=== PATIENT | male | born 1950 | race Caucasian/White ===

== ENCOUNTER 2022-10-27 08:18 | Outpatient (REF) | payer MEDICARE, SELFPAY ==
--- NOTE | ~2022-10-27 | XR_ITS ---
EXAMINATION: XR PELVIS CLINICAL INFORMATION: Hip pain COMPARISON: None available. TECHNIQUE: AP view of the pelvis. FINDINGS: There is severe arthritis of the right hip joint with joint space narrowing and osteophyte formation. There is moderate arthritis at the left hip joint. No fracture or dislocation. Bones of the pelvis are unremarkable. Sacroiliac joints are normal. Degenerative changes of visualized lower lumbar spine. Mild atherosclerotic disease. XR/XR pelvis 1-2V IMPRESSION: Bilateral hip arthritis, right greater than left.
== END 2022-10-27 08:19 | disposition home or self-care (01) ==
LOC: HO.HOSX 08:18
PROVIDERS: Visit Provider Orthopaedic Surgery
DX: M16.11 Unilateral primary osteoarthritis, right hip (principal)
CPT/HCPCS: 72170; 99202

== ENCOUNTER 2023-04-17 09:56 | Outpatient (AMB) | payer MEDICARE, SELFPAY ==
[2023-04-17 10:22] VITALS: BMI 33.0
--- NOTE | 2023-04-17 10:22 | MHC.OFFVIS ---
Intake Vital Signs 04/17/23 10:22 Height 5 ft 10 in Weight 230 lb BMI 33.0 Intake Visit Reasons: Preop RT YONIS 04/18/23 NE Intake Note: Joseph a 72 year old male presents today for a preoperative right YONIS, DOS 04/18/23. Pain management agreement reviewed and signed. Allergies No Known Allergies Allergy (Verified 04/17/23 10:23) HPI HPI Comments History of Present Illness Details Mr Feliciano presents to the office today for preop visit. He is scheduled for right total hip arthroplasty with Dr. Bhakta. He continues to have ongoing pain and difficulty with ambulation in the right hip, which is affecting his quality of life; therefore, he has elected to move forward with surgery. [facility] Medical History (Updated 04/17/23 @ 11:47 by Lamont Leon PA-C) History of skin cancer Osteoarthritis Habitual snoring COPD (chronic obstructive pulmonary disease) HTN (hypertension) Hyperlipidemia Carpal tunnel syndrome CHENG (dyspnea on exertion) Dysplastic nevus Abnormal EKG Back pain Hx of adenomatous polyp of colon Diverticulosis Memory change Spinal stenosis of lumbar region Lesion of [place] kidney Surgical History (Updated 04/17/23 @ 11:22 by Eli Cruz RN) History of back surgery History of total right knee replacement (TKR) H/O colonoscopy S/P TKR (total knee replacement) Social History Are you a primary career resource technician to a significant other at home: No Do you presently have visiting nurse or other home services: No Patient Tobacco Use Status: Former Tobacco user Review of Systems Const All systems reviewed & are unremarkable except as noted in HPI and below Physical Exam Vital Signs: BMI result Body Mass Index 33.0 Const General: cooperative, healthy appearing, comfortable, no acute distress, well developed and alert Orientation/consciousness: patient oriented x3 HEENT Head: Yes normal to inspection, Yes normocephalic and Yes atraumatic Eyes General: appearance normal, both eyes and all related structures Neck Neck: Yes normal visual inspection and Yes no lymphadenopathy Resp Effort & Inspection: normal respiratory effort and able to speak in complete sentences Cardio Rate: regular rate Peripheral pulses: Peripheral pulses 2+ throughout GI Inspection: Yes normal to inspection Palpation (GI): Soft to palpation Skin General skin exam: no rashes or lesions noted Neuro General: patient oriented x3 Extrem Other: Right hip: Normal to inspection. There is no open wounds, no abrasions. He has pain with ROM of hip and hip flexion. NVI. Psych Appearance: grossly normal Mental Status: mental status grossly normal Assessment & Plan Assessment & Plan (1) Osteoarthritis of right hip: Code(s): M16.11 - Unilateral primary osteoarthritis, right hip Qualifiers: Osteoarthritis type: primary Qualified Code(s): M16.11 - Unilateral primary osteoarthritis, right hip Plan: I discussed in detail the procedure and what to expect pre and post operatively. We discussed the risks, benefits and alternatives to the surgery as well as the rehabilitation course. The risks; which include, but are not limited to infection, bleeding, nerve injury, ongoing pain, swelling, and stiffness, perioperative risk of injury to bones and soft tissues, and blood clots. I?ve answered all questions and with their understanding they have consented to move forward with Right total hip arthroplasty with Dr. Bhakta Patient Instructions: Scribed for Lamont Leon PA-C, by Clive La medical management specialist, on 04/17/2023 at 10:15 AM Lamont OWENS PA-C, have personally reviewed and agree with the information entered by the scribe. Coding Level of Care Code Est Pt Level 3 (64299) Diagnoses Primary osteoarthritis of right hip M16.11 Osteoarthritis type: primary
== END 2023-04-17 10:44 | disposition home or self-care (01) ==
PROVIDERS: PCP Internal Medicine; Visit Provider Physician Assistant
DX: M16.11 Unilateral primary osteoarthritis, right hip (principal)
CPT/HCPCS: 99024

== ENCOUNTER → 2023-04-17 09:56 | Outpatient (BNVA) | payer MEDICARE, SELFPAY | PROVIDERS: PCP Internal Medicine; Visit Provider Physician Assistant | DX: M16.11 Unilateral primary osteoarthritis, right hip (principal) | CPT/HCPCS: 99212 ==

== ENCOUNTER 2023-04-18 06:05 | Inpatient (IN) | payer MEDICARE, SELFPAY ==
[2023-04-17 11:36] VITALS: BP 150/89; PULSE 68; RESP 18; O2SAT 98; BMI 32.9
--- NOTE | 2023-04-17 11:59 | HO.ANESPROP2 ---
Documented by User: Lisa Hedrick NP 04/17/23 12:09 HPI - Anesthesia Eval Consult details Narrative: 72yo M for Right Hip Total Replacement PCP cleared No recent illness No CP/SOB with exercise bike COPD. Albuterol occasional PMFSH Active Problems Active Problems: All Active Problems (Updated 04/17/23 @ 11:47 by Lamont Leon PA-C) Osteoarthritis of right hip (Acute) Past Medical History Medical History History of skin cancer Osteoarthritis Habitual snoring COPD (chronic obstructive pulmonary disease) HTN (hypertension) Hyperlipidemia Carpal tunnel syndrome CHENG (dyspnea on exertion) Dysplastic nevus Abnormal EKG Back pain Hx of adenomatous polyp of colon Diverticulosis Memory change Spinal stenosis of lumbar region Lesion of [place] kidney Family History Family history of problems with anesthesia: No Surgical History Surgical History History of back surgery History of total right knee replacement (TKR) H/O colonoscopy S/P TKR (total knee replacement) History of Problems with Anesthesia: No Social History Social History Are you a primary childcare center administrator to a significant other at home: No Do you presently have visiting nurse or other home services: No Patient Tobacco Use Status: Former Tobacco user Use of substances other than those prescribed or required for medical reasons: No Have you been hit, kicked, punched, or otherwise hurt by someone within the past year? If so, by whom?: No Advance Directives: No Advance Directives Information Provided: No Advance Directives on File: No Recently lost weight without trying: No Eating poorly because of decreased appetite: No Nutrition Risks: No Nutritional Risk Poor oral hygiene: No Meds Allergies Allergy/AdvReac Type Severity Reaction Status Date / Time No Known Allergies Allergy Verified 04/18/23 06:16 Home Medications Medication Instructions Recorded Confirmed Last Taken Type amlodipine 5 mg tablet 5 mg PO DAILY 10/27/22 04/17/23 04/18/23 History acetaminophen 325 mg tablet 650 mg PO QID PRN Pain 04/14/23 04/14/23 Unknown History albuterol sulfate 90 mcg/actuation 2 puff inhalation Q4H PRN wheezing 04/14/23 04/17/23 Unknown History aerosol inhaler atorvastatin 20 mg tablet 20 mg PO DAILY 04/14/23 04/14/23 Unknown History hydrochlorothiazide 25 mg tablet 25 mg PO DAILY 04/14/23 04/14/23 Unknown History metoprolol tartrate 25 mg tablet 25 mg PO BID 04/14/23 04/14/23 04/18/23 History multivitamin 1 tab PO DAILY 04/14/23 04/14/23 Unknown History omega 8-klx-vkw-fish oil 1,000 mg 1 cap PO DAILY 04/14/23 04/14/23 Unknown History (120 mg-180 mg) capsule (Fish Oil) vitamin E 400 unit tablet 45 mg PO DAILY 04/14/23 04/14/23 Unknown History aspirin 81 mg tablet,delayed 81 mg PO DAILY 04/17/23 04/17/23 04/18/23 History release Exam Exam Date and Time: April 17, 2023 1159 Height,Weight and Vital Signs: Height 5 ft 11 in Weight 107.048 kg Last Vital Signs Pulse 68 04/17/23 11:36 Resp 18 04/17/23 11:36 BP 150/89 H 04/17/23 11:36 Pulse Ox 98 04/17/23 11:36 O2 Del Method Room Air 04/17/23 11:36 Pertinent Lab Results Pertinent Lab Results: CBC and BMP from outside facility 03/22/23 WNL Narrative Narrative: EKG 03/27/[address] elevation Airway Mallampati Class: III TM Dist: >3cm Neck ROM: Full Loose/Missing/Broken Teeth: Yes (Molars missing) Heart: RRR Lungs: CTAB Assessment and Plan Assessment Anesthesia Assessment: Anesthesia Plan Discussed and PAT Visit Final Anesthetic Review Family History of Problems with Anesthesia: No History of Problems with Anesthesia: No Documented by User: Carmelo Coates MD 04/18/23 08:02 [facility] Past Medical History Medical History History of skin cancer Osteoarthritis Habitual snoring COPD (chronic obstructive pulmonary disease) HTN (hypertension) Hyperlipidemia Carpal tunnel syndrome CHENG (dyspnea on exertion) Dysplastic nevus Abnormal EKG Back pain Hx of adenomatous polyp of colon Diverticulosis Memory change Spinal stenosis of lumbar region Lesion of [place]q kidney Surgical History Surgical History History of back surgery History of total right knee replacement (TKR) H/O colonoscopy S/P TKR (total knee replacement) Social History Social History Are you a primary childcare center administrator to a significant other at home: No Do you presently have visiting nurse or other home services: No Patient Tobacco Use Status: Former Tobacco user Use of substances other than those prescribed or required for medical reasons: No Have you been hit, kicked, punched, or otherwise hurt by someone within the past year? If so, by whom?: No Advance Directives: No Advance Directives Information Provided: No Advance Directives on File: No Recently lost weight without trying: No Eating poorly because of decreased appetite: No Nutrition Risks: No Nutritional Risk Poor oral hygiene: No Meds Allergies Allergy/AdvReac Type Severity Reaction Status Date / Time No Known Allergies Allergy Verified 04/18/23 06:16 Home Medications Medication Instructions Recorded Confirmed Last Taken Type amlodipine 5 mg tablet 5 mg PO DAILY 10/27/22 04/17/23 04/18/23 History acetaminophen 325 mg tablet 650 mg PO QID PRN Pain 04/14/23 04/14/23 Unknown History albuterol sulfate 90 mcg/actuation 2 puff inhalation Q4H PRN wheezing 04/14/23 04/17/23 Unknown History aerosol inhaler atorvastatin 20 mg tablet 20 mg PO DAILY 04/14/23 04/14/23 Unknown History hydrochlorothiazide 25 mg tablet 25 mg PO DAILY 04/14/23 04/14/23 Unknown History metoprolol tartrate 25 mg tablet 25 mg PO BID 04/14/23 04/14/23 04/18/23 History multivitamin 1 tab PO DAILY 04/14/23 04/14/23 Unknown History omega 3-tce-pbf-fish oil 1,000 mg 1 cap PO DAILY 04/14/23 04/14/23 Unknown History (120 mg-180 mg) capsule (Fish Oil) vitamin E 400 unit tablet 45 mg PO DAILY 04/14/23 04/14/23 Unknown History aspirin 81 mg tablet,delayed 81 mg PO DAILY 04/17/23 04/17/23 04/18/23 History release Assessment and Plan Final Anesthetic Review ASA Class: II Final Preanesthetic Review: No Changes in Pt Med Stat, Meds/Allgs Chart Reviewed and Consent Obtained/Reviewed Patient Risk: Intermediate Procedure Risk: Intermediate Anesthetic Plan Anesthetic Plan: GA and Agree w/ Assess. and Plan Disposition: Standard PACU
[2023-04-17 13:33] LABS: MRSA Nasal PCR NEGATIVE (Negative); SA Nasal PCR NEGATIVE (Negative)
[2023-04-18] VITALS (12 sets, daily range): BP systolic 94–154; BP diastolic 61–99; PULSE 56–88; RESP 16–20; TEMP 36.1–37.1; O2SAT 93–98
--- NOTE | ~2023-04-18 | XR_ITS ---
EXAMINATION: XR PELVIS CLINICAL INFORMATION: Total hip arthroplasty evaluation COMPARISON: Pelvic x-ray on 10/27/2022 TECHNIQUE: AP view of the pelvis. FINDINGS: BONES: Bony structures are intact. Advanced lower degenerative lumbar disc disease and lateral syndesmophytes are seen. There is no focal bone destruction or periosteal reaction seen. JOINTS: There is normal alignment of the right total hip arthroplasty prostheses. SOFT TISSUE: Soft tissue is normal. No abnormal air collection is seen. XR/XR pelvis 1-2V IMPRESSION: 1. Unchanged normal pelvis x-ray. No fracture or dislocation is seen. 2. Interval successful right total hip arthroplasty with normal alignment of right total hip arthroplasty prostheses. No fracture or dislocation or signs of loosening are seen.
[2023-04-18] MEDS: Lactated Ringers 1,000 ML 100 ML IVCONT ×3 (06:31→21:04)
--- NOTE | 2023-04-18 07:12 | PHA.MEDREC ---
Pharmacy Consult ? Medication Reconciliation Pharmacy has completed the medication reconciliation. Reviewed med rec done by nursing
[2023-04-18] MEDS: ceFAZolin Sodium/Dextrose,Iso 2 GM/50 ML PIGGYBACK IV ×2 (07:26→12:55)
--- NOTE | 2023-04-18 07:40 | MHC.SHP ---
Pre-Procedural Eval Section A Date of Service: 04/18/23 The patient is an INPATIENT: No Changes since office visit: No Cold of Flu in the past 2 weeks, No New Medical Problems, No Changes in Medication and No Patient answered all questions The History & Physical has been completed within 30 days and I have reviewed it.: Yes Section B Chief Complaint: RT YONIS Allergies: Allergies Allergy/AdvReac Type Severity Reaction Status Date / Time No Known Allergies Allergy Verified 04/18/23 06:16 Plan I have reviewed the history and physical and performed a pertinent physical examination on my patient. No changes have occurred unless specified. Time Spent With Patient Time: Total time managing care of this patient today ____ minutes.
--- NOTE | 2023-04-18 09:44 | PM.OP ---
Brief Operative Note Date of Service: 04/18/23 Pre-op diagnosis: right hip OA Post-op diagnosis: same Procedure: Right YONIS Implants: Sahil Trident2 60 Abell Accoalde2 #10 132 deg with +0/36 CoCr Surgeon: Michael Bhakta MD Anesthesia: GETA Was an Investment Professional used for this Procedure?: No Estimated blood loss (mL): 250 IV fluids (mL): 1,000 Pathology: other Condition: stable Disposition: PACU
--- NOTE | 2023-04-18 11:16 | PM.IMCN ---
History of Present Illness Data of Consult Service Date: 04/18/23 Primary Care Provider: Jr Del Cid MD HPI Reason for consult: Medical management A 73 years old male with PMH of HTN, HLD among others who presents to the hospital for elective right hip arthroplasty. No chest pain, palpitations, SOB, nausea, vomiting, diarrhea or urinary symptoms. Hospitalist team asked to follow for medical management. Review of Systems Review of Systems: No fever, chills or weakness No chest pain, palpitation No shortness of breath or coughing No abdominal pain, nausea or vomiting No urinary symptoms No any rash or wounds [facility] Medical History (Updated 04/18/23 @ 11:19 by Jeffrey Carbajal MD) History of skin cancer Osteoarthritis Habitual snoring COPD (chronic obstructive pulmonary disease) HTN (hypertension) Hyperlipidemia Carpal tunnel syndrome CHENG (dyspnea on exertion) Dysplastic nevus Abnormal EKG Back pain Hx of adenomatous polyp of colon Diverticulosis Memory change Spinal stenosis of lumbar region Lesion of [place] kidney Surgical History History of back surgery History of total right knee replacement (TKR) H/O colonoscopy S/P TKR (total knee replacement) Social History Household Members: Spouse Housing: Condominium Are you a primary skin care technician to a significant other at home: No Do you presently have visiting nurse or other home services: No Patient Tobacco Use Status: Former Tobacco user Use of substances other than those prescribed or required for medical reasons: No Have you been hit, kicked, punched, or otherwise hurt by someone within the past year? If so, by whom?: No Do you feel safe in your current relationship?: Yes Is there a partner from a previous relationship who is making you feel unsafe now?: No Are you made to feel afraid or neglected: No Advance Directives: No Advance Directives Information Provided: No Advance Directives on File: No Do you have thoughts of harming others: None Do you have a plan to hurt others: No Plan Recently lost weight without trying: No How much weight loss: Not applicable Eating poorly because of decreased appetite: No Nutrition screen score: 0 Nutrition Risks: No Nutritional Risk Poor oral hygiene: No Meds Allergies Allergy/AdvReac Type Severity Reaction Status Date / Time No Known Allergies Allergy Verified 04/18/23 06:16 Active Medications: Current Medications Acetaminophen (Acetaminophen 325 Mg Tablet) 650 mg PO Q6H PRN PRN Reason: Pain, Mild (Pain Scale 1-3) Albuterol Sulfate (Albuterol Sulfate 90 Mcg 8 Gm Inhaler) 2 puff INHALE Q4H PRN PRN Reason: wheezing Aspirin (Aspirin 325 Mg Tablet) 325 mg PO BID [facility] Celecoxib (Celecoxib 200 Mg Capsule) 200 mg PO BID [facility] Docusate Sodium (Docusate Sodium 100 Mg Capsule) 100 mg PO BID [facility] Hydromorphone HCl (Hydromorphone Hcl 0.5 Mg/0.5 Ml Syringe) 0.25 mg IVPUSH Q4H PRN; Protocol PRN Reason: Pain, Severe (Pain Scale 7-10) Lactated Ringer's (Lr) 1,000 mls @ 100 mls/hr IVCONT .Q10H [facility] Stop: 04/19/23 09:50 Last Admin: 04/18/23 10:53 Dose: 100 mls/hr Cefazolin Sodium/Dextrose (Ancef) 2 gm in 50 mls @ 100 mls/hr IV POSTOP ONE Stop: 04/18/23 13:29 Metoprolol Tartrate (Metoprolol Tartrate 25 Mg Tablet) 25 mg PO BID [facility]; Protocol Ondansetron HCl (Ondansetron Hcl 4 Mg/2 Ml Vial) 4 mg IVPUSH Q8H PRN PRN Reason: Nausea and Vomiting Oxycodone HCl (Oxycodone Hcl Immed Release 5 Mg Tablet) 5 mg PO Q4H PRN PRN Reason: Pain, Moderate(Pain Scale 4-6) Oxycodone HCl (Oxycodone Hcl Er 10 Mg Tab.Er.12h) 10 mg PO BID [facility] Sodium Chloride (0.9 % Sodium Chloride Flush 3 Ml Syringe) 3 ml IVFLUSH QSHIFT [facility] Home Medications Medication Instructions Recorded Confirmed Last Taken Type amlodipine 5 mg tablet 5 mg PO DAILY 10/27/22 04/17/23 04/18/23 History acetaminophen 325 mg tablet 650 mg PO QID PRN Pain 04/14/23 04/14/23 Unknown History albuterol sulfate 90 mcg/actuation 2 puff inhalation Q4H PRN wheezing 04/14/23 04/17/23 Unknown History aerosol inhaler atorvastatin 20 mg tablet 20 mg PO DAILY 04/14/23 04/14/23 Unknown History hydrochlorothiazide 25 mg tablet 25 mg PO DAILY 04/14/23 04/14/23 Unknown History metoprolol tartrate 25 mg tablet 25 mg PO BID 04/14/23 04/14/23 04/18/23 History multivitamin 1 tab PO DAILY 04/14/23 04/14/23 Unknown History omega 9-zit-qub-fish oil 1,000 mg 1 cap PO DAILY 04/14/23 04/14/23 Unknown History (120 mg-180 mg) capsule (Fish Oil) vitamin E 400 unit tablet 45 mg PO DAILY 04/14/23 04/14/23 Unknown History aspirin 81 mg tablet,delayed 81 mg PO DAILY 04/17/23 04/17/23 04/18/23 History release Physical Exam Vital Signs and Narrative: Vital Signs: Last Vital Signs Temp 97.6 F 04/18/23 11:07 Pulse 72 04/18/23 11:07 Resp 20 04/18/23 11:07 BP 154/79 H 04/18/23 11:07 Pulse Ox 98 04/18/23 11:07 O2 Del Method Nasal Cannula 04/18/23 11:07 O2 Flow Rate 2 04/18/23 11:07 BMI result Body Mass Index 32.9 Const: Other: Constitutional : Awake, interactive, not in distress Neck : Normal inspection, Supple Cardiovascular : RRR, no JVP, no lower extremity edema Respiratory : good bilateral air entry, no wheezes or rhonchi Gastrointestinal: soft, lax, Normal bowel sounds, Non tender Skin : Warm, Dry Skeletal: Right hip wound covered with dressing Neurological : Alert & oriented x3, No focal deficit Results Labs Labs: Laboratory Results - last 24 hr 04/17/23 04/17/23 11:48 12:45 Nasal Screen MRSA (PCR) NEGATIVE Nasal S. aureus Screen NEGATIVE Nasal MRSA/S.aureus Interp SEE NOTE Blood Type O Positive Antibody Screen NEGATIVE Assessment and Plan (1) HTN (hypertension): Status: Acute Plan A 73 years old male with PMH of HTN, HLD among others who presents to the hospital for elective right hip arthroplasty. Right hip arthroplasty POD 0 Ortho team following HTN home meds HLD Statin Thank you for the consult. will follow with you as needed. plz contact hospitalist team for any further questions
--- NOTE | 2023-04-18 13:55 | PC.NURSE ---
Patient DTV by 1200 but unable to urinate more than 15ml, but bladder scanned for 300ml surgical PA Dang Campos aware and ordered to straight cath. Elvis cathed at 1345 for 350ml
[2023-04-18] MEDS: oxyCODONE HCl Immed Release 5 MG TABLET PO ×2 (17:44→22:42)
[2023-04-18] MEDS: Acetaminophen 325 MG TABLET 650 MG PO (20:07)
[2023-04-18] MEDS: Docusate Sodium 100 MG CAPSULE PO (20:07)
[2023-04-18] MEDS: Celecoxib 200 MG CAPSULE PO (20:07)
[2023-04-18] MEDS: oxyCODONE HCl ER 10 MG TAB.ER.12H PO (20:07)
[2023-04-18] MEDS: Metoprolol Tartrate 25 MG TABLET PO (20:16)
[2023-04-18] MEDS: 0.9 % Sodium Chloride Flush 3 ML SYRINGE IVFLUSH (20:17)
[2023-04-18] MEDS: Melatonin 3 MG TABLET 6 MG PO (21:03)
[2023-04-19] MEDS: oxyCODONE HCl Immed Release 5 MG TABLET PO ×3 (02:46→14:50)
[2023-04-19] MEDS: Acetaminophen 325 MG TABLET 650 MG PO ×3 (02:47→19:58)
[2023-04-19 02:56] VITALS: BP 121/78; PULSE 74; RESP 18; TEMP 36.5; O2SAT 98
[2023-04-19 06:38] LABS: Basophils Absolute Auto 0.1 X10*3/uL (0.0-0.2); Basophils Percent Auto 0.4 % (0-2); Eosinophils Absolute Auto 0.1 X10*3/uL (0.0-0.4); Eosinophils Percent Auto 0.4 % (0-4); Hematocrit 38.3 % (42.0-52.0); Hemoglobin 12.8 g/dl (14.0-18.0); Imm Gran Abs Auto 0.08 X10*3/uL (0.00-0.03); Imm Gran Pct Auto 0.5 % (0.0-0.4); Lymphocytes Absolute Auto 1.4 X10*3/uL (1.2-4.9); Lymphocytes Percent Auto 8.5 % (20-40); MANUAL DIFF FLAG SCAN; Mean Corpuscular HGB Conc 33.4 g/dl (31.0-36.0); Mean Corpuscular Volume 86.8 fL (80.0-98.0); Mean Platelet Volume 12.2 fL (9.4-12.4); Monocytes Absolute Auto 2.3 X10*3/uL (0.1-1.2); Monocytes Percent Auto 14.3 % (2-11); Neutrophils Absolute Auto 12.4 x10*3/uL (2.0-8.3); Neutrophils Percent Auto 75.9 % (45-73); PLT CLUMP 1; Red Blood Count 4.41 X10*6/uL (4.60-5.80); Red Cell Distribution Width 12.9 % (11.0-16.0); SCAN SMEAR FLAG 1
[2023-04-19 06:54] LABS: Anion Gap 14 (12-20); Blood Urea Nitrogen 22 mg/dL (9-16); Calcium 8.7 mg/dL (8.4-10.2); Carbon Dioxide 25 mmol/L (22-29); Chloride 104 mmol/L (96-108); Creatinine Clr Calc Pharmacy 68.3; Estimated Glomerular Filt Rate > 60; Glucose Fasting 121 mg/dL (60-99); Potassium 3.6 mmol/L (3.3-5.1); Sodium 139 mmol/L (135-145)
--- NOTE | 2023-04-19 07:35 | PM.PNORT ---
Subjective Subjective Date of Service: 04/19/23 Interval history: POD1 s/p RTHA Patient is resting in bed comfortably No overnight events Pain is managed No additional complaints Physical Exam Vital Signs: Vital Signs: Last Vital Signs Temp 97.7 F 04/19/23 02:56 Pulse 74 04/19/23 02:56 Resp 18 04/19/23 02:56 BP 121/78 04/19/23 02:56 Pulse Ox 98 04/19/23 02:56 O2 Del Method Room Air 04/19/23 02:56 O2 Flow Rate 2 04/18/23 11:07 BMI result Body Mass Index 32.9 Const: General: cooperative, healthy appearing and no acute distress Resp: Effort & Inspection: normal respiratory effort and able to speak in complete sentences Cardio: Rate: regular rate Peripheral pulses: Peripheral pulses 2+ throughout GI: Palpation (GI): Soft to palpation Skin: Lesions: no lesions Rashes: no rashes Extrem: Other: right hip dressing is c/d/i. Able to dorsi/plantar flex. Calf is supple and nontender. Sensation intact. Pedal pulse intact. Procedures Date of Service Date of Service: 04/19/23 Progress Note: A&P Assessment and plan (1) Status post total replacement of right hip: Status: Acute Assessment and Plan: Continue pain mgmnt Begin ASA for dvt ppx begin PT for RTHA - WBAT, posterior precautions Dispo planning-Pending PT eval, pain mgmnt Time Spent With Patient Time: Total time managing care of this patient today ____ minutes. Quality Stroke Does the patient have a stroke diagnosis?: No VTE Prior VTE?: No VTE Risk Level:: Medical - moderate - high VTE Device Contraindication: N/A - Device Ordered VTE Drug Contraindication: N/A - Med Ordered
[2023-04-19 07:44] VITALS: BP 99/60; PULSE 56; RESP 16; TEMP 36; O2SAT 97
[2023-04-19] MEDS: oxyCODONE HCl ER 10 MG TAB.ER.12H PO ×2 (08:03→19:59)
[2023-04-19] MEDS: Celecoxib 200 MG CAPSULE PO ×2 (08:04→19:58)
[2023-04-19] MEDS: Aspirin 325 MG TABLET PO ×2 (08:04→19:59)
[2023-04-19] MEDS: Docusate Sodium 100 MG CAPSULE PO ×2 (08:04→19:59)
[2023-04-19 08:29] LABS: Platelet Count 163 X10*3/uL (160-400); SLIDE REVIEW VERIFIED; White Blood Count 16.3 X10*3/uL (4.8-10.8)
[2023-04-19 09:02] VITALS: BP 99/60; PULSE 56; O2SAT 97
--- NOTE | 2023-04-19 09:25 | MHC.CM.PN ---
CM ATTEMPTED TO MEET WITH PT HOWEVER PT WORKING W/P.T., CM TO REVISIT.
[2023-04-19] MEDS: polyethylene glycoL 3350 17 GM POWD.PACK PO (09:48)
[2023-04-19] MEDS: HYDROmorphone HCl 0.5 MG/0.5 ML SYRINGE IVPUSH (09:49)
--- NOTE | 2023-04-19 09:56 | P.PNIM_ITS ---
Subjective Subjective Date of Service: 04/19/23 Interval History: Complaining of rt. hip pain worse with transfers, feels current pain medications not helping with pain, denies lightheadedness or dizziness, no nausea, no vomiting no abdominal pain, no urinary symptoms, no other acute issues. Noted to have soft blood pressures this morning. Review of Systems All other system reviewed and negative Physical Exam 2 Vital Signs: Vital Signs: Last Vital Signs Temp 96.8 F 04/19/23 07:44 Pulse 56 04/19/23 09:02 Resp 16 04/19/23 07:44 BP 99/60 04/19/23 09:02 Pulse Ox 97 04/19/23 09:02 O2 Del Method Room Air 04/19/23 07:44 O2 Flow Rate 2 04/18/23 11:07 BMI result Body Mass Index 32.9 Const: Other: Constitutional : Awake, alert, not in distress Neck : Normal inspection, no JVD Cardiovascular : RRR, Respiratory : Clear to auscultation, no wheezes or rhonchi Gastrointestinal: soft, Normal bowel sounds, Non tender Skin : Warm, Dry Skeletal: Right hip wound covered with dressing. Neurological : Alert & oriented x3, No focal deficit Objective Data Active Medications Acetaminophen (Acetaminophen 325 Mg Tablet) 650 mg PO TID [facility] Albuterol Sulfate (Albuterol Sulfate 90 Mcg 8 Gm Inhaler) 2 puff INHALE Q4H PRN PRN Reason: wheezing Amlodipine Besylate (Amlodipine Besylate 5 Mg Tablet) 5 mg PO DAILY [facility]; Protocol Aspirin (Aspirin 325 Mg Tablet) 325 mg PO BID [facility] Last Admin: 04/19/23 08:04 Dose: 325 mg Documented By: PEEWEE Celecoxib (Celecoxib 200 Mg Capsule) 200 mg PO BID [facility] Last Admin: 04/19/23 08:04 Dose: 200 mg Documented By: PEEWEE Docusate Sodium (Docusate Sodium 100 Mg Capsule) 100 mg PO BID [facility] Last Admin: 04/19/23 08:04 Dose: 100 mg Documented By: PEEWEE Hydromorphone HCl (Hydromorphone Hcl 0.5 Mg/0.5 Ml Syringe) 0.5 mg IVPUSH Q4H PRN; Protocol PRN Reason: Pain, Severe (Pain Scale 7-10) Last Admin: 04/19/23 09:49 Dose: 0.5 mg Documented By: PEEWEE Melatonin (Melatonin 3 Mg Tablet) 6 mg PO BEDTIME PRN PRN Reason: Insomnia Last Admin: 04/18/23 21:03 Dose: 6 mg Documented By: VIRI Metoprolol Tartrate (Metoprolol Tartrate 25 Mg Tablet) 25 mg PO BID [facility]; Protocol Last Admin: 04/19/23 08:04 Dose: Not Given Documented By: PEEWEE Non-Admin Reason: Low BP Ondansetron HCl (Ondansetron Hcl 4 Mg/2 Ml Vial) 4 mg IVPUSH Q8H PRN PRN Reason: Nausea and Vomiting Oxycodone HCl (Oxycodone Hcl Immed Release 5 Mg Tablet) 5 mg PO Q4H PRN PRN Reason: Pain, Moderate(Pain Scale 4-6) Last Admin: 04/19/23 07:14 Dose: 5 mg Documented By: PEEWEE Oxycodone HCl (Oxycodone Hcl Er 10 Mg Tab.Er.12h) 10 mg PO BID [facility] Last Admin: 04/19/23 08:03 Dose: 10 mg Documented By: PEEWEE Polyethylene Glycol (Polyethylene Glycol 3350 17 Gm Powd.Pack) 17 gm PO DAILY [facility] Last Admin: 04/19/23 09:48 Dose: 17 gm Documented By: PEEWEE Sodium Chloride (0.9 % Sodium Chloride Flush 3 Ml Syringe) 3 ml IVFLUSH QSHIFT [facility] Last Admin: 04/19/23 07:17 Dose: Not Given Documented By: PEEWEE Non-Admin Reason: ivf running Labs 04/19/23 06:16 04/19/23 06:16 Labs: Laboratory Results - last 24 hr 04/19/23 06:16 MCV 86.8 MCH 29.0 MCHC 33.4 RDW 12.9 Plt Count 163 MPV 12.2 Immature Gran % (Auto) 0.5 H Neut % (Auto) 75.9 H Lymph % (Auto) 8.5 L [place] % (Auto) 14.3 H Eos % (Auto) 0.4 Baso % (Auto) 0.4 Lymph # (Auto) 1.4 [place] # (Auto) 2.3 H Eos # (Auto) 0.1 Baso # (Auto) 0.1 Abs Immat Gran (auto) 0.08 H Absolute Neuts (auto) 12.4 H Absolute Nucleated RBC 0.000 Nucleated RBC % (auto) 0.0 Smear Tech's Comments VERIFIED Anion Gap 14 Estim Creat Clear Calc 68.3 Estimated GFR > 60 Fasting Glucose 121 H Calcium 8.7 Assessment and Plan (1) HTN (hypertension): Status: Acute (2) Status post total replacement of right hip: Status: Acute (3) Osteoarthritis of right hip: Status: Acute Plan 73 years old male with PMH of HTN, HLD among others who presents to the hospital for elective right hip arthroplasty. Right hip arthroplasty POD 1, persistent right hip pain Will increase dose of Dilaudid to 0.5 mg add scheduled Tylenol continue OxyContin and as needed oxycodone DC IV fluids, add MiraLax continue Colace encourage Incentive spirometry Ortho team following HTN Soft blood pressure patient asymptomatic will continue beta-blockers and hold Norvasc follow BP closely HLD Statin DVT prophylaxis on aspirin 325 mg b.i.d. as per Ortho. Quality Stroke Does the patient have a stroke diagnosis?: No VTE Prior VTE?: No VTE Risk Level:: Medical - moderate - high VTE Device Contraindication: N/A - Device Ordered VTE Drug Contraindication: N/A - Med Ordered
--- NOTE | 2023-04-19 10:46 | HO.POSTANES ---
Post Anesthesia Evaluation Post Anesthesia Evaluation Date of Service: 04/19/23 Vital Signs: Vital Signs Temp Pulse Resp BP Pulse Ox O2 Del Method 04/19/23 09:02 56 99/60 97 04/19/23 07:44 96.8 F 56 16 99/60 97 Room Air 04/19/23 02:56 97.7 F 74 18 121/78 98 Room Air Anesthesia: General Mental Status: Awake Pain Control: Satisfactory Nausea/Vomiting: None Hydration: Adequate Anesthesia-Related Issues: No Anes. Related Issues
--- NOTE | 2023-04-19 11:40 | MHC.CM.PN ---
IMM 04/19/23, EMR REVIEWED, PT REPORTS HE LIVES W/HIS , IS INDEP W/ALL CARE, HAS A CANE/WALKER/TOILET RISER/SHOWER BENCH FOR DME ADN NO HOME SERVICES, PT REPORTS HE ONLY USES THE CAN WHEN HE IS OUT AND ABOUT , PT REPORTS GOAL FOR DC IS HOME W/SERVICES AND NO PREFERENCE OF VNA AND AGREEABLE TO [facility], REFERRAL PLACED. PT VERIFIES PCP IS JONATHAN RIZVI, SUZETTE VACC X2 AMD HCP OS CELESTINA AND ALTERNATE IS DTR POLINA CASTILLO, COPY REQUESTED. ANTIC DC THURS 04/20 HOME W/NEW [facility] FOR HOME PT, FAMILY FOR TRANSPORT
[2023-04-19 13:38] VITALS: BP 99/60; PULSE 56; O2SAT 97
[2023-04-19 15:40] VITALS: BP 104/61; PULSE 63; RESP 18; TEMP 36.1; O2SAT 98
[2023-04-19] MEDS: oxyCODONE HCl Immed Release 5 MG TABLET 10 MG PO ×2 (15:57→19:59)
[2023-04-19 19:36] VITALS: BP 105/66; PULSE 80; RESP 18; TEMP 36.4; O2SAT 93
[2023-04-19] MEDS: Metoprolol Tartrate 25 MG TABLET PO (19:59)
[2023-04-20] MEDS: 0.9 % Sodium Chloride Flush 3 ML SYRINGE IVFLUSH ×2 (00:03→07:34)
[2023-04-20] MEDS: HYDROmorphone HCl 0.5 MG/0.5 ML SYRINGE IVPUSH (00:12)
[2023-04-20 04:00] VITALS: BP 105/60; PULSE 57; RESP 16; TEMP 36.3; O2SAT 96
[2023-04-20 06:19] LABS: Basophils Absolute Auto 0.1 X10*3/uL (0.0-0.2); Basophils Percent Auto 0.8 % (0-2); Eosinophils Absolute Auto 0.2 X10*3/uL (0.0-0.4); Eosinophils Percent Auto 1.8 % (0-4); Hematocrit 35.6 % (42.0-52.0); Hemoglobin 11.8 g/dl (14.0-18.0); Imm Gran Abs Auto 0.07 X10*3/uL (0.00-0.03); Imm Gran Pct Auto 0.6 % (0.0-0.4); Lymphocytes Absolute Auto 1.3 X10*3/uL (1.2-4.9); Lymphocytes Percent Auto 10.4 % (20-40); MANUAL DIFF FLAG SCAN; Mean Corpuscular HGB Conc 33.1 g/dl (31.0-36.0); Mean Corpuscular Hemoglobin 29.2 pg (27.0-33.0); Mean Corpuscular Volume 88.1 fL (80.0-98.0); Mean Platelet Volume 11.2 fL (9.4-12.4); Monocytes Absolute Auto 1.6 X10*3/uL (0.1-1.2); Neutrophils Absolute Auto 9.2 x10*3/uL (2.0-8.3); Neutrophils Percent Auto 73.4 % (45-73); Platelet Count 159 X10*3/uL (160-400); Red Blood Count 4.04 X10*6/uL (4.60-5.80); SCAN SMEAR FLAG 1; White Blood Count 12.6 X10*3/uL (4.8-10.8)
[2023-04-20 06:20] LABS: Anion Gap 12 (12-20); Blood Urea Nitrogen 22 mg/dL (9-16); Carbon Dioxide 28 mmol/L (22-29); Chloride 103 mmol/L (96-108); Creatinine Clr Calc Pharmacy 72.6; Estimated Glomerular Filt Rate > 60; Glucose Fasting 109 mg/dL (60-99); Potassium 4.3 mmol/L (3.3-5.1); Sodium 139 mmol/L (135-145)
--- NOTE | 2023-04-20 06:24 | P.DS_ITS ---
DS: Providers Provider Date of Service: 04/20/23 <Lamont Leon PA-C - Last Filed: 04/20/23 06:25> Date of admission: 04/18/23 06:05 <LANDON Emerson Last Filed: 04/20/23 06:25> Primary care physician: Jr Del Cid MD <LANDON Emerson Last Filed: 04/20/23 06:25> Consults: 04/18/23 10:29 Consult to Hospitalist Routine Comment: Consulting Provider: Hospitalist Reason For Exam: medical management <LANDON Emerson Last Filed: 04/20/23 06:25> DS: Diagnosis Discharge Diagnosis (1) Status post total replacement of right hip: Status: Acute <LANDON Emerson Last Filed: 04/20/23 06:25> DS: Summary Hospital Course Hospital Course: The patient underwent a successful Right total hip arthroplasty on 04/18/23 , was transferred to PACU and then to the floor to recover. During their stay, their vitals were stable, afebrile at 97.4. Labs were unremarkable, H/H 11.8/35.6. POD 1 he was started on Aspirin 325mg tabs twice a day for DVT ppx, they also received Physical Therapy services twice a day. Physical therapy should include gait training, core and lumbar strength, glute strength. Posterior precautions intact. WBAT. Prior to discharge, her dressing was changed, incision clean dry and intact, new Aquacel dressing applied. The Aquacel dressing should remain intact and dry at all times. Any concerns with the dressing, please contact orthopedic office. No showering. The plan is to be discharged home with [facility]NA services <LANDON Emerson Last Filed: 04/20/23 06:25> Time Attestation Discharge coordination time: Less than 30 minutes <LANDON Coley Last Filed: 04/20/23 08:56> Quality: Safe Use of Opioids Does Pt have an Active Cancer Diagnosis on the Problem List?: No <LANDON Coley Last Filed: 04/20/23 08:56> Quality: Stroke Does the patient have a stroke diagnosis?: No <Dang Adams PA-C - Last Filed: 04/20/23 08:56> Physical Exam Vital Signs: Vital Signs: Last Vital Signs Temp 97.3 F 04/20/23 04:00 Pulse 57 04/20/23 04:00 Resp 16 04/20/23 04:00 BP 105/60 04/20/23 04:00 Pulse Ox 96 04/20/23 04:00 O2 Del Method Room Air 04/20/23 04:00 O2 Flow Rate 2 04/18/23 11:07 BMI result Body Mass Index 32.9 <Lamont Leon PA-C - Last Filed: 04/20/23 06:25> DS: Data Data Completed and Pending Pending studies at discharge: Pending at discharge 04/18/23 09:17 Surgical [PTH] Routine <Lamont Leon PA-C - Last Filed: 04/20/23 06:25> Labs on day of discharge: Laboratory Results - last 24 hr 04/19/23 04/20/23 06:16 05:28 WBC 16.3 H RBC 4.41 L Hgb 12.8 L Hct 38.3 L MCV 86.8 MCH 29.0 MCHC 33.4 RDW 12.9 Plt Count 163 MPV 12.2 Immature Gran % (Auto) 0.5 H Neut % (Auto) 75.9 H Lymph % (Auto) 8.5 L [place] % (Auto) 14.3 H Eos % (Auto) 0.4 Baso % (Auto) 0.4 Lymph # (Auto) 1.4 [place] # (Auto) 2.3 H Eos # (Auto) 0.1 Baso # (Auto) 0.1 Abs Immat Gran (auto) 0.08 H Absolute Neuts (auto) 12.4 H Absolute Nucleated RBC 0.000 Nucleated RBC % (auto) 0.0 Smear Tech's Comments VERIFIED Sodium 139 139 Potassium 3.6 4.3 Chloride 104 103 Carbon Dioxide 25 28 Anion Gap 14 12 BUN 22 H 22 H Creatinine 1.18 1.11 Estim Creat Clear Calc 68.3 72.6 Estimated GFR > 60 > 60 Fasting Glucose 121 H 109 H Calcium 8.7 9.0 <Lamont Leon PA-C - Last Filed: 04/20/23 06:25> Discharge Plan Discharge Anticipated Discharge Date/Time: 04/20/23 12:00 <Lamont Leon PA-C - Last Filed: 04/20/23 06:25> Patient Disposition: Home Health Service <Lamont Leon PA-C - Last Filed: 04/20/23 06:25> Discharge Diagnosis: S/P RT YONIS <Lamont Leon PA-C - Last Filed: 04/20/23 06:25> S/P RT YONIS <Dang Adams PA-C - Last Filed: 04/20/23 08:56> Referrals: Lamont Leon PA-C [Physician Sticker On] - 2 Weeks (05/08/23 12:45 [facility] Orthopedic Surgeons Lamont Leon PA-C) <Lamont Leon PA-C - Last Filed: 04/20/23 06:25> Discharge Medications: New docusate sodium 100 mg Capsule 100 mg PO BID 14 Days Qty: 28 0RF celecoxib 200 mg Capsule 200 mg PO BID 30 Days Qty: 60 3RF aspirin 325 mg Tablet 325 mg PO BID 42 Days Qty: 84 0RF oxycodone 5 mg Tablet 5 mg PO Q4H PRN (Reason: Pain, Moderate(Pain Scale 4-6)) 7 Days Qty: 42 0RF Rx Instructions: Partial Fill upon patient request. acetaminophen 325 mg Tablet 650 mg PO TID 30 Days Qty: 180 3RF Continued multivitamin Tablet 1 tab PO DAILY atorvastatin 20 mg tablet 20 mg PO DAILY vitamin E 400 unit Tablet 45 mg PO DAILY hydrochlorothiazide 25 mg tablet 25 mg PO DAILY albuterol sulfate 90 mcg/actuation HFA aerosol inhaler 2 puff INHALATION Q4H PRN (Reason: wheezing) metoprolol tartrate 25 mg tablet 25 mg PO BID amlodipine 5 mg tablet 5 mg PO DAILY Held omega 2-pos-lpg-fish oil [Fish Oil] 1,000 mg (120 mg-180 mg) Capsule 1 cap PO DAILY Hold Instructions: Resume on 06/02/23. aspirin 81 mg Tablet,Delayed Release (Dr/Ec) 81 mg PO DAILY Hold Instructions: Resume on 06/02/23. Discontinued acetaminophen 325 mg Tablet 650 mg PO QID PRN (Reason: Pain) <Lamont Leon PA-C - Last Filed: 04/20/23 06:25> Discharge Orders: Discharge Order (Routine); Ordered 04/20/23 Ordered By: Dang Adams <Lamont Leon PA-C - Last Filed: 04/20/23 06:25> Diet: Regular diet <Lamont Leon PA-C - Last Filed: 04/20/23 06:25> Regular diet <Dang Adams PA-C - Last Filed: 04/20/23 08:56> Activity on Discharge: Use cane or walker <Lamont Leon PA-C - Last Filed: 04/20/23 06:25> Use cane or walker <Dang Adams PA-C - Last Filed: 04/20/23 08:56> Stand Alone Forms: Patient Portal Discharge page <LANDON Emerson Last Filed: 04/20/23 06:25> Care Plan Goals: Restore function of joint <LANDON Emerson Last Filed: 04/20/23 06:25> Health Concerns: None <LANDON Emerson Last Filed: 04/20/23 06:25> Plan of Treatment: Physical Therapy Pain management DVT prophylaxis <LANDON Emerson Last Filed: 04/20/23 06:25> Assessment: * Physical Therapy for Total hip arthroplasty: wbat, posterior precautions, gait training, ROM, strength * Limit stair climbing * No showering, no tub bath-keep dressing clean, dry and intact * No driving x6 weeks * Continue Aspirin twice a day x 6 weeks * Follow up with [facility] Orthopedics in 2 weeks: 05/08/23 12:45 [facility] [place] Orthopedic SurgeonsLamont Leon PA-C * --you will also have your first out patient PT eval on the day of your post op appt-so please plan on being in the office that day for an extended period of time. <Lamont Leon PA-C - Last Filed: 04/20/23 06:25>
[2023-04-20 07:13] LABS: SLIDE REVIEW VERIFIED
[2023-04-20] MEDS: Aspirin 325 MG TABLET PO (07:32)
[2023-04-20] MEDS: Celecoxib 200 MG CAPSULE PO (07:32)
[2023-04-20] MEDS: oxyCODONE HCl Immed Release 5 MG TABLET 10 MG PO (07:32)
[2023-04-20] MEDS: Docusate Sodium 100 MG CAPSULE PO (07:33)
[2023-04-20] MEDS: Acetaminophen 325 MG TABLET 650 MG PO (07:33)
[2023-04-20] MEDS: polyethylene glycoL 3350 17 GM POWD.PACK PO (07:33)
[2023-04-20] MEDS: Metoprolol Tartrate 25 MG TABLET PO (07:33)
[2023-04-20 07:38] VITALS: BP 116/62; PULSE 55; RESP 16; TEMP 36.3; O2SAT 98
[2023-04-20 08:29] VITALS: BP 116/62; PULSE 55; O2SAT 98
--- NOTE | 2023-04-20 08:56 | W.MHC.F2F ---
Service Date Service Date: 04/20/23 Encounter Date of encounter: 04/20/23 Reasons for Services Signs and symptoms assessed: s/p RTHA. Pt. is considered homebound due to recent surgery. Unable to drive, poor balance, poor gait mechanics. Reason for physical therapy: home safety and mobility, therapeutic exercises, restore joint function, gait/transfer training, assess need for DME and ADL training Reason for occupational therapy: home safety and mobility, therapeutic exercises, restore joint function, gait/transfer training, assess need for DME and ADL training Homebound: Leaving the home is medically contraindicated at this time without the asist of a device and/or another person due th the listed conditions above and below. Reason homebound: unsteady gait / fall risk, leg weakness, pain with ambulation, pain with transfers, poor balance / fall risk and unable to drive Certification: Based on the above findings, I certify that this patient is confined to the home and needs intermittent senior living care, physical therapy and/or speech therapy, or continues to need occupational therapy. The patient is under my care, and I have initiated the establishment of the plan of care. The patient will be followed by a physician who will periodically review the plan of care. Time Spent With Patient Time: Total time managing care of this patient today ____ minutes.
[2023-04-20] MEDS: oxyCODONE HCl ER 10 MG TAB.ER.12H PO (09:14)
--- NOTE | 2023-04-20 09:31 | MHC.CM.PN ---
PT MEDICALLY CLEARED FOR DC HOME W/NEW [facility] FOR HOME PT, PT TO ARRANGE TRANSPORT
--- NOTE | 2023-04-20 10:26 | P.PNIM_ITS ---
Subjective Subjective Date of Service: 04/20/23 Interval History: Good pain control, slept well denies lightheadedness, no dizziness, no chest pain, no palpitation tolerating diet no nausea, no vomiting ,no abdominal pain, no other acute overnight events. Review of Systems All other system reviewed and negative. Physical Exam 2 Vital Signs: Vital Signs: Last Vital Signs Temp 97.4 F 04/20/23 07:38 Pulse 55 04/20/23 08:29 Resp 16 04/20/23 07:38 BP 116/62 04/20/23 08:29 Pulse Ox 98 04/20/23 08:29 O2 Del Method Room Air 04/20/23 07:38 O2 Flow Rate 2 04/18/23 11:07 BMI result Body Mass Index 32.9 Const: Other: Constitutional : Awake, alert, not in distress Neck : Normal inspection, no JVD Cardiovascular : RRR, Respiratory : Clear to auscultation, no wheezes or rhonchi Gastrointestinal: soft, Normal bowel sounds, Non tender Skin : Warm, Dry Skeletal: Right hip wound covered with dressing. Neurological : Alert & oriented x3, No focal deficit Objective Data Active Medications Acetaminophen (Acetaminophen 325 Mg Tablet) 650 mg PO TID [facility] Last Admin: 04/20/23 07:33 Dose: 650 mg Documented By: BETTIE Albuterol Sulfate (Albuterol Sulfate 90 Mcg 8 Gm Inhaler) 2 puff INHALE Q4H PRN PRN Reason: wheezing Amlodipine Besylate (Amlodipine Besylate 5 Mg Tablet) 5 mg PO DAILY [facility]; Protocol Aspirin (Aspirin 325 Mg Tablet) 325 mg PO BID [facility] Last Admin: 04/20/23 07:32 Dose: 325 mg Documented By: BETTIE Celecoxib (Celecoxib 200 Mg Capsule) 200 mg PO BID [facility] Last Admin: 04/20/23 07:32 Dose: 200 mg Documented By: BETTIE Docusate Sodium (Docusate Sodium 100 Mg Capsule) 100 mg PO BID [facility] Last Admin: 04/20/23 07:33 Dose: 100 mg Documented By: BETTIE Hydromorphone HCl (Hydromorphone Hcl 0.5 Mg/0.5 Ml Syringe) 0.5 mg IVPUSH Q4H PRN; Protocol PRN Reason: Pain, Severe (Pain Scale 7-10) Last Admin: 04/20/23 00:12 Dose: 0.5 mg Documented By: AMITA Melatonin (Melatonin 3 Mg Tablet) 6 mg PO BEDTIME PRN PRN Reason: Insomnia Last Admin: 04/18/23 21:03 Dose: 6 mg Documented By: VIRI Metoprolol Tartrate (Metoprolol Tartrate 25 Mg Tablet) 25 mg PO BID [facility]; Protocol Last Admin: 04/20/23 07:33 Dose: 25 mg Documented By: BETTIE Ondansetron HCl (Ondansetron Hcl 4 Mg/2 Ml Vial) 4 mg IVPUSH Q8H PRN PRN Reason: Nausea and Vomiting Oxycodone HCl (Oxycodone Hcl Er 10 Mg Tab.Er.12h) 10 mg PO BID [facility] Last Admin: 04/20/23 09:14 Dose: 10 mg Documented By: BETTIE Oxycodone HCl (Oxycodone Hcl Immed Release 5 Mg Tablet) 10 mg PO Q4H PRN PRN Reason: Pain, Moderate(Pain Scale 4-6) Last Admin: 04/20/23 07:32 Dose: 10 mg Documented By: BETTIE Polyethylene Glycol (Polyethylene Glycol 3350 17 Gm Powd.Pack) 17 gm PO DAILY [facility] Last Admin: 04/20/23 07:33 Dose: 17 gm Documented By: BETTIE Sodium Chloride (0.9 % Sodium Chloride Flush 3 Ml Syringe) [facility] Last Admin: 04/20/23 07:34 Dose: 3 ml Documented By: BETTIE Labs 04/20/23 05:28 04/20/23 05:28 Labs: Laboratory Results - last 24 hr 04/20/23 05:28 MCV 88.1 MCH 29.2 MCHC 33.1 RDW 13.0 Plt Count 159 L MPV 11.2 Immature Gran % (Auto) 0.6 H Neut % (Auto) 73.4 H Lymph % (Auto) 10.4 L [place] % (Auto) 13.0 H Eos % (Auto) 1.8 Baso % (Auto) 0.8 Lymph # (Auto) 1.3 [place] # (Auto) 1.6 H Eos # (Auto) 0.2 Baso # (Auto) 0.1 Abs Immat Gran (auto) 0.07 H Absolute Neuts (auto) 9.2 H Absolute Nucleated RBC 0.000 Nucleated RBC % (auto) 0.0 Smear Tech's Comments VERIFIED Anion Gap 12 Estim Creat Clear Calc 72.6 Estimated GFR > 60 Fasting Glucose 109 H Calcium 9.0 Assessment and Plan (1) HTN (hypertension): Status: Acute (2) Status post total replacement of right hip: Status: Acute (3) Osteoarthritis of right hip: Status: Acute Plan 73 years old male with PMH of HTN, HLD among others who presents to the hospital for elective right hip arthroplasty. Right hip arthroplasty POD 2, good pain control right hip Continue current pain medication seen by PT recommend home with services Continues stools softeners encourage Incentive spirometry Dispo plan as per Ortho HTN Soft blood pressure patient asymptomatic recommend to continue metoprolol and Norvasc and hold hydrochlorothiazide and resume on if systolic BP greater than 120 . HLD Statin DVT prophylaxis on aspirin 325 mg b.i.d. as per Ortho. Quality Stroke Does the patient have a stroke diagnosis?: No VTE Prior VTE?: No VTE Risk Level:: Medical - moderate - high VTE Device Contraindication: N/A - Device Ordered VTE Drug Contraindication: N/A - Med Ordered
[2023-04-20 10:45] VITALS: BP 116/62; PULSE 55; O2SAT 98
--- NOTE | 2023-04-26 11:16 | P.OP_ITS ---
Operative Note Operative Note Date of Service: 04/18/23 Narrative: Date of Service: 04/18/23 Pre-op diagnosis: right hip OA Post-op diagnosis: same Procedure: Right YONIS Implants: [place] Trident2 60 Sahil Accoalde2 #10 132 deg with +0/36 CoCr Surgeon: Michael Bhakta MD Anesthesia: GETA Was an Locomotive Electrician used for this Procedure?: No Estimated blood loss (mL): 250 IV fluids (mL): 1,000 Pathology: other Condition: stable Disposition: PACU Procedure in detail: Patient was brought into the operating room and placed in the right lateral decubitus position. All bony prominences were well padded and the limb was prepped and draped in standard sterile fashion. A time-out was called to identify proper site procedure proper surgeon IV antibiotics and 1 g of transaxemic acid were administered. I began by making a curvilinear incision over the posterolateral aspect of the greater trochanter. Dissection was taken down to the tensor fascia which was incised in line with the incision and a Charnley retractor was placed. Cautery was used to maintain hemostasis. The hip was internally rotated and the external rotators were identified. The vessels were cauterized and a full-thickness capsular/external rotator layer was developed starting just proximal to the piriformis. This layer was tagged and a dull Hohmann retractor was placed underneath the neck in the hip was dislocated. A neck cut was made 1 cm proximal to the lesser trochanter and the head and neck were removed and measured 56mm on the back table. I then removed the labrum and cauterized the fovea. I started with a 52 reamer and medialized to the inner table. I sequentially reamed up to a size 60 and impacted a 60 mm cup at 45 degrees of inclination and 25 degrees of version. I then placed a 20 deg posterior lipped liner and turned my attention to the femur. I identified the piriformis insertion and used this as a starting point for my brice cutter. The medius tendon was protected with a Hibs retractor. A Charnley awl was inserted in the canal and a curved curette used to remove the lateral donald ne. I irrigated copiously. I then sequentially broached in the patient's natural version to a size 5 and placed my trial implants. I used a #10/132/+0 based on my pre-operative template. Using a trail head I took the hip through range of motion. I was satisfied with the stability. I removed all instrumentation and copiously irrigated. I placed my final femoral implant and again took the hip through range of motion and was satisfied with the stability and length. The final +0 implant was impacted in place and the hip reduced. I then irrigated for 3 minutes with iodine and placed 1 g of local transaxemic acid. I performed a capsular closure with 2.0 fiberwire, Aden's fascia with 0 Vicryl, subcuticular with 2-0 Vicryl and the skin with roni. Patient was placed into a sterile dressing. Patient was extubated brought to the recovery room in stable condition. There were no known complications.
== END 2023-04-20 11:16 | disposition home health service (06) | DRG 470 ==
LOC: HO.SSSA 06:09 → HO.S3 10:03
PROVIDERS: Physician Assistant; Admitting Provider Orthopaedic Surgery; PCP Internal Medicine; Visit Provider Orthopaedic Surgery
PROC: 0SR90JA Replacement of Right Hip Joint with Synthetic Substitute, Uncemented, Open Approach (ICD-10-PCS; CPT 27130; principal; 2023-04-18 07:30)
DX: M16.11 Unilateral primary osteoarthritis, right hip (principal); I10 Essential (primary) hypertension; E78.5 Hyperlipidemia, unspecified; J44.9 Chronic obstructive pulmonary disease, unspecified; Z87.891 Personal history of nicotine dependence; Z79.82 Long term (current) use of aspirin; Z79.899 Other long term (current) drug therapy
CPT/HCPCS: 36415; 72170; 80048; 85025; 86850; 86900; 86901; 87640; 87641; 88304; 88305; 88311; 97110; 97116; 97162; 97165; 97535; C1776; J0131; J0690; J1100; J1170; J1885; J2405; J2795; J3010

== ENCOUNTER → 2023-04-18 06:05 | Outpatient (BNV) | payer MEDICARE, SELFPAY | PROVIDERS: Admitting Provider Orthopaedic Surgery; PCP Internal Medicine; Visit Provider Student in an Organized Health Care Education/Training Program | DX: I10 Essential (primary) hypertension (principal) | CPT/HCPCS: 99221; 99232 ==

== ENCOUNTER → 2023-04-18 06:05 | Outpatient (BNV) | payer MEDICARE, SELFPAY | PROVIDERS: Admitting Provider Orthopaedic Surgery; PCP Internal Medicine; Visit Provider Orthopaedic Surgery | DX: Z96.641 Presence of right artificial hip joint (principal) | CPT/HCPCS: 27130; 99024 ==

== ENCOUNTER 2023-05-08 12:42 | Outpatient (AMB) | payer MEDICARE, SELFPAY ==
--- NOTE | 2023-05-08 12:44 | A.OFFVIS_ITS ---
Intake Intake Visit Reasons: PO-RT YONIS 04/18/23 [place] Intake Note: Joseph 72 yr old male presents today for his P/O visit for his Right YONIS from 04/18/23. States he is doing well with minimal pain. Allergies No Known Allergies Allergy (Verified 05/08/23 12:49) HPI PO-RT YONIS 04/18/23 NE HPI Details 72-year-old male who returns to the [facility] today for post-op right YONIS, 04/18/[address] Bhakta. He states he has minimal pain and is doing well overall. He has no other concerns today. [facility] Medical History (Updated 04/25/23 @ 00:02 by Background Tita) Osteoarthritis of right hip History of skin cancer Osteoarthritis Habitual snoring COPD (chronic obstructive pulmonary disease) HTN (hypertension) Hyperlipidemia Carpal tunnel syndrome CHENG (dyspnea on exertion) Dysplastic nevus Abnormal EKG Back pain Hx of adenomatous polyp of colon Diverticulosis Memory change Spinal stenosis of lumbar region Lesion of sycuan kidney Surgical History (Updated 04/25/23 @ 00:02 by Background Tita) History of back surgery History of total right knee replacement (TKR) H/O colonoscopy S/P TKR (total knee replacement) Household Members: Spouse [facility] Are you a primary career development director to a significant other at home: No Do you presently have visiting nurse or other home services: No Patient Tobacco Use Status: Former Tobacco user service: No Review of Systems Const All systems reviewed & are unremarkable except as noted in HPI and below Physical Exam Extrem Other: Right hip: Incision clean, dry and intact. No erythema or drainage. He can perform ROM of hip with minimal discomfort. NVI. Assessment & Plan Assessment & Plan (1) Status post total replacement of right hip: Code(s): Z96.641 - Presence of right artificial hip joint Plan [place] removed, steri strips applied. He will begin to transition to Outpatient PT to continue working on Gait training, ROM and strength. No driving for another 4 weeks. He will require ppx abx for dental procedures. He will f/u in 4 weeks, sooner if needed. Patient Instructions: Scribed for Nitin-Jennifer Leon PA-C, by Clive La biomedical engineering aide, on 05/08/2023 at 12:45 PM Lamont OWENS PA-C, have personally reviewed and agree with the information entered by the mira. Coding Level of Care Code Global (29353) Diagnoses Status post total replacement of right hip Z96.641
== END 2023-05-08 13:29 | disposition home or self-care (01) ==
PROVIDERS: PCP Internal Medicine; Visit Provider Physician Assistant
DX: Z96.641 Presence of right artificial hip joint (principal)
CPT/HCPCS: 99024

== ENCOUNTER → 2023-05-08 12:42 | Outpatient (BNVA) | payer MEDICARE, SELFPAY | PROVIDERS: PCP Internal Medicine; Visit Provider Physician Assistant ==

== ENCOUNTER 2023-06-08 11:27 | Outpatient (AMB) | payer MEDICARE, SELFPAY ==
--- NOTE | 2023-06-08 11:28 | A.OFFVIS_ITS ---
Intake Vital Signs 06/08/23 11:31 Height 5 ft 11 in Weight 235 lb BMI 32.8 Intake Visit Reasons: PO-RT YONIS 04/18/23 NE Intake Note: Joseph 72 yr old male presents today for his P/O visit for his right YONIS from 04/18/[address] Bhakta. Patient reports he is doing very well and has been improving daily. Patient states he has a few question pertaining to what he can and can not do. Allergies No Known Allergies Allergy (Verified 06/08/23 11:32) HPI PO-RT YONIS 04/18/23 NE HPI Details 72-year-old male who returns to the [facility] today for post-op right YONIS, 04/18/[address] Bhakta. He states he has improvement in his pain daily and is doing well overall. He would like to know what activities he can do and what he cannot. He has no other concerns today. [facility] Medical History (Updated 04/25/23 @ 00:02 by Background Tita) Osteoarthritis of right hip History of skin cancer Osteoarthritis Habitual snoring COPD (chronic obstructive pulmonary disease) HTN (hypertension) Hyperlipidemia Carpal tunnel syndrome CHENG (dyspnea on exertion) Dysplastic nevus Abnormal EKG Back pain Hx of adenomatous polyp of colon Diverticulosis Memory change Spinal stenosis of lumbar region Lesion of [place] kidney Surgical History (Updated 04/25/23 @ 00:02 by Background Daemon) History of back surgery History of total right knee replacement (TKR) H/O colonoscopy S/P TKR (total knee replacement) Social History Household Members: Spouse Housing: [facility] Are you a primary home care associate to a significant other at home: No Do you presently have visiting nurse or other home services: No Patient Tobacco Use Status: Former Tobacco user service: No Review of Systems Const All systems reviewed & are unremarkable except as noted in HPI and below Physical Exam Vital Signs: BMI result Body Mass Index 32.8 Extrem Other: Right hip: Incision well healed. He can perform ROM of hip without paint. NVI. Assessment & Plan Assessment & Plan (1) Status post total replacement of right hip: Code(s): Z96.641 - Presence of right artificial hip joint Plan Continue exercises at home. We discussed posterior precatuions and how to avoid bending beyond 90 deg. He will return in [address] Bhakta and new x- rays, sooner if needed. Patient Instructions: Scribed for Lamont Leon PA-C, by Clive La spanish medical interpreter, on 06/08/2023 at 11:30 AM LEONCIO. Lamont Sevilla PA-C, have personally reviewed and agree with the information entered by the scribe. Coding Level of Care Code Global (73491) Diagnoses Status post total replacement of right hip Z96.641
[2023-06-08 11:31] VITALS: BMI 32.8
== END 2023-06-08 11:42 | disposition home or self-care (01) ==
PROVIDERS: PCP Internal Medicine; Visit Provider Physician Assistant
DX: Z96.641 Presence of right artificial hip joint (principal)
CPT/HCPCS: 99024

== ENCOUNTER → 2023-06-08 11:27 | Outpatient (BNVA) | payer MEDICARE, SELFPAY | PROVIDERS: PCP Internal Medicine; Visit Provider Physician Assistant | DX: Z47.1 Aftercare following joint replacement surgery (principal); Z96.641 Presence of right artificial hip joint | CPT/HCPCS: 99212 ==

== ENCOUNTER 2023-07-06 08:29 | Outpatient (AMB) | payer MEDICARE, SELFPAY ==
--- NOTE | 2023-07-06 08:35 | MHC.OFFVIS ---
Intake Intake Visit Reasons: PO-RT YONIS 04/18/23 NE Intake Note: Joseph is a 72 year old male who presents today for a post operative appointment s/p Right YONIS 04/18/23. Patient reports that he is feeling that the hip is unstable. He is having difficulty with gait initiation and climbing stairs. He has mild pain. Allergies No Known Allergies Allergy (Verified 07/06/23 08:47) HPI PO-RT YONIS 04/18/23 NE HPI Details Joseph is a 72 year old man who presents ~10 weeks S/P right YONIS. He reports mild pain, worse than before, along with feelings of instability. He says he has problems climbing stairs, or beginning to walk. [facility] Medical History (Updated 04/25/23 @ 00:02 by Background Tita) Osteoarthritis of right hip History of skin cancer Osteoarthritis Habitual snoring COPD (chronic obstructive pulmonary disease) HTN (hypertension) Hyperlipidemia Carpal tunnel syndrome CHENG (dyspnea on exertion) Dysplastic nevus Abnormal EKG Back pain Hx of adenomatous polyp of colon Diverticulosis Memory change Spinal stenosis of lumbar region Lesion of [place] kidney Surgical History (Updated 04/25/23 @ 00:02 by Background Daemon) History of back surgery History of total right knee replacement (TKR) H/O colonoscopy S/P TKR (total knee replacement) Social History Household Members: Spouse Housing: [facility] Are you a primary child day care provider to a significant other at home: No Do you presently have visiting nurse or other home services: No Patient Tobacco Use Status: Former Tobacco user service: No Review of Systems Const All systems reviewed & are unremarkable except as noted in HPI and below Physical Exam Const General: no acute distress, alert and awake Orientation/consciousness: patient oriented x3 HEENT Head: Yes normocephalic and Yes atraumatic Eyes EOM: EOMs intact bilaterally Resp Effort & Inspection: normal respiratory effort and able to speak in complete sentences Cardio Jugular venous distension: no JVD Skin General skin exam: turgor normal Rashes: no rashes Neuro General: patient oriented x3 Extrem Other: Excellent ROM right hip. No pain. Trendelenberg gait Psych Appearance: grossly normal Affect: normal affect Attitude: cooperative Results Reviewed Results Reviewed: I personally reviewed relevant radiographs. Right YONIS in expected post operative position with no hardware complications or evidence of loosening Assessment & Plan Assessment & Plan (1) Status post total replacement of right hip: Code(s): Z96.641 - Presence of right artificial hip joint Plan: Right hip is stable and he has no pain. His gait pattern is poor with habitual trendelenberg gait. PT for gait mechanics and strengthening. Reassured patient that he is doing as expected. f/u 6 weeks Plan Prepared for Michael Bhakta MD by Dave Schofield, medical records specialist, on 07/06/23 at 8:41 AM, EST. Orders: Orders XR pelvis 1-2V Today M25.559 - Pain in unspecified hip PT Evaluation and Treatment Today Z96.641 - Presence of right artificial hip joint Coding Level of Care Code Global (64029) Diagnoses Status post total replacement of right hip Z96.641
== END 2023-07-06 09:30 | disposition home or self-care (01) ==
PROVIDERS: PCP Internal Medicine; Visit Provider Orthopaedic Surgery
DX: Z96.641 Presence of right artificial hip joint (principal)
CPT/HCPCS: 99024

== ENCOUNTER 2023-07-06 14:48 | Outpatient (REF) | payer MEDICARE, SELFPAY ==
--- NOTE | ~2023-07-06 | XR_ITS ---
EXAMINATION: XR PELVIS CLINICAL INFORMATION: X-ray pelvis on 04/18/2023 COMPARISON: None available. TECHNIQUE: AP view of the pelvis. FINDINGS: BONES: The visualized lower pelvic Bony structures are intact. There is no focal bone destruction or periosteal reaction seen. JOINTS: There is normal alignment of right total hip arthroplasty prostheses. SOFT TISSUE: Soft tissue is normal. No abnormal air collection is seen. XR/XR pelvis 1-2V IMPRESSION: 1. Unchanged normal lower pelvis x-ray. No fracture or dislocation is seen. 2. Unchanged normal alignment of right total hip arthroplasty prostheses. No fracture or dislocation or signs of loosening are seen.
== END 2023-07-06 14:49 | disposition home or self-care (01) ==
LOC: HO.HOSX 14:48
PROVIDERS: Visit Provider Orthopaedic Surgery
DX: M25.551 Pain in right hip (principal); Z47.1 Aftercare following joint replacement surgery; Z96.641 Presence of right artificial hip joint
CPT/HCPCS: 72170; 99212

== ENCOUNTER 2023-08-15 10:00 | Outpatient (RCR) | payer MEDICARE, SELFPAY ==
--- NOTE | 2023-07-13 11:18 | MHC.PT.EP ---
[facility] [place] Office [place] [facility] [place] Office [address] Corby Holloway [address] [phone] F: [phone] F: [phone] F: [phone] F: [phone] Physical Therapy Plan of Care Date of Evaluation: 07/13/23 Date of Surgery: 04/18/23 Diagnosis: This is a 72 yo male presenting to skilled PT with a script for s/p R YONIS. Assessment: This is a 72 yo male presenting to skilled PT with a script for s/p R YONIS. Right YONIS was performed on 04/18/23 at [facility] with [place]. Bhakta. This patient has been going to PT at [facility] (6 wks) however had his follow up with Dr. Bhakta and reported that he is feeling that the hip is unstable, he continues to have mild pain, having trouble with gait initiation and climbing stairs still. It was recommended he switch clinics and start PT at [facility] for another round of care. At home he does his HEP once a day (LAQ, hip abductions in sitting and standing, marching, standing, hip extensions, glut squeezes 2x10), 4000 steps a day (treadmill). He returns to ortho in 5 weeks. He is very active at baseline and wants to get stronger and improve his gait pattern. Assessment reveals pain that ranges from up to a 2/10 at the worst. Patient demos decreased hip ROM, strength of B gluts, hips, back and core and impaired posture with forward head and rounded shoulders as well as impaired gait, balance and functional tolerance for stairs, walking and ADLs expected s/p YONIS. Based on functional limitations, impaired QOL and pain tolerance patient is a good candidate for skilled PT 2x/wk for 4wks. Frequency and Duration: The patient will be seen 2x/wk for 4wks Short Term Goals: Pt will demonstrate improved postural awareness and understanding of core engagement with supine and standing tasks without cues throughout session to improve overall hip strength and posture in 2 weeks. Pt will reports improved stair negotiation in 2 weeks Pt will continue to reinforce precautions, sitting, standing and ADL modifications with proper body mechanics in 2 wks. Tack Puller Goals: Pt will demonstrate improved outcome measure by 5 points in 4 weeks for improved functional mobility. Pt will demo improved gait pattern and improved subjective stability of his hip in 4wks. Pt will be I in HEP and compliant in 4wks Treatment Plan: Modalities to reduce pain, spasms and effusion. Manual therapy to restore motion and function. Therapeutic exercise to improve strength and flexibility. Neuromuscular re-education for posture and balance. Therapeutic activities to return to functional activities of daily living. Electronically signed by: Nora Holland PT Please sign and return to therapist. Thank you for your referral.
--- NOTE | 2023-08-15 10:52 | MHC.PT.PR ---
[facility] [place] Office [place] Office [place] Office [address] Corby Holloway [address] [phone] F: [phone] F: [phone] F: [phone] F: [phone] Physical Therapy Progress Note Diagnosis: This is a 72 yo male presenting to skilled PT with a script for s/p R YONIS. Date of Surgery: 04/18/23 Date of Evaluation: 07/13/23 Treatments to Date: 8 Cancellations to Date: 0 No Shows to Date: 0 Subjective: Doing well, ready for DC. Pain Score and Location: 2 R hip Objective Measures: WFL MMT for hip and knee Assessment: 08/14: Patient has come to 8 sessions of PT, he had PT prior to this at [facility] as well. He demos improved gait pattern, good balance, good strength and good ROM. 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 I educated him that he should continue his HEP still but is ready for DC at this time. He is I and motivated. He would like a progress note be sent to surgeon who he follows up with this week. Educated him that his chart will be closed after 30 days if no new symptoms or questions occur. DC to HEP. : Patient sees ortho next week. He is I with his program. I think he is ready for DC next visit. I will send over a progress report prior to appointment. No adverse reactions noted. 08/08: Continued previous POC and I don't plan to add in any new exercises in the next 2 appointments. He has 2 more scheduled and then he sees the orthopedic for a follow up a week from this . We discussed his progress and PT POC. I educated him that I feel he has improved his gait pattern, strength and understanding of exercises since evaluation. He is I in his home program, uses his bike and treadmill every day and is ready for DC in 2 visits unless told otherwise from surgeon. 08/03: Performed exercises 50/50 weightbearing and nonweightbearing, no knee pain was reported. Provided HEP and bands for home. Educated him again on gait pattern and deviations. No pain was reported throughout the session. 08/01; Pt had fatigued after hip exs, stated ankle was really weak. Rested and it resolved. 07/20/23: Continued to educate on PT POC, HEP and posture. He tends to forget to activate his muscles and needs consistent cuing throughout the session still. Finished with ice in sitting today. 07/18/23: Patient needs alot of verbal and tactile cuing, re-education on HEP and re-education in various ways for patient to understand why we are exercising and what we are trying to achieve. He reports that he crawls up his stairs and I educated him that he should not be doing this due to breaking his hip precautions. He seems to have a lapse with his memory as most of the education I provided on the evaluation was not carried over when we reviewed his HEP. This is a 72 yo male presenting to skilled PT with a script for s/p R YONIS. Right YONIS was performed on 04/18/23 at [facility] with Dr. Bhakta. This patient has been going to PT at [facility] (6 wks) however had his follow up with Dr. Bhakta and reported that he is feeling that the hip is unstable, he continues to have mild pain, having trouble with gait initiation and climbing stairs still. It was recommended he switch clinics and start PT at [facility] for another round of care. At home he does his HEP once a day (LAQ, hip abductions in sitting and standing, marching, standing, hip extensions, glut squeezes 2x10), 4000 steps a day (treadmill). He returns to ortho in 5 weeks. He is very active at baseline and wants to get stronger and improve his gait pattern. Assessment reveals pain that ranges from up to a 2/10 at the worst. Patient demos decreased hip ROM, strength of B gluts, hips, back and core and impaired posture with forward head and rounded shoulders as well as impaired gait, balance and functional tolerance for stairs, walking and ADLs expected s/p YONIS. Based on functional limitations, impaired QOL and pain tolerance patient is a good candidate for skilled PT 2x/wk for 4wks. PT Plan: Discharge from PT Frequency and Duration: The patient will be seen 2x/wk for 4wks Treatment Plan: Therapeutic Exercise Dynamic Therapeutic Activities Neuromuscular Re-ed Manual Therapies Gait Home Exercise Program Patient Education Hot or Cold Pack DC to HEP Reviewed/ Agreed with Student Documentation: Therapist: Thank you once again for your referral.
--- NOTE | 2023-09-14 08:09 | MHC.PT.DC ---
[facility] [place] Office [place] Office [address] Corby Holloway [address] [phone] F: [phone] F: [phone] F: [phone] F: [phone] Physical Therapy Discharge Report Diagnosis: This is a 72 yo male presenting to skilled PT with a script for s/p R YONIS. Date of Surgery: 04/18/23 Date of Evaluation: 07/13/23 Date of Discharge: 09/14/23 Treatments to Date: 8 Cancellations to Date: 0 No Shows to Date: 0 Discharge Status: Achieved Goals Improved Function Independent with HEP Discharge Summary: 08/14: Patient has come to 8 sessions of PT, he had PT prior to this at [facility] as well. He demos improved gait pattern, good balance, good strength and good ROM. 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 I educated him that he should continue his HEP still but is ready for DC at this time. He is I and motivated. He would like a progress note be sent to surgeon who he follows up with this week. Educated him that his chart will be closed after 30 days if no new symptoms or questions occur. DC to HEP. Electronically signed by: Nora Holland PT Please sign and return to therapist. Thank you for your referral.
== END 2023-09-14 08:09 | disposition home or self-care (01) ==
LOC: HO.PTCHIC 10:00
PROVIDERS: PCP Internal Medicine; Visit Provider Orthopaedic Surgery
DX: Z96.641 Presence of right artificial hip joint (principal)
CPT/HCPCS: 97110; 97162

== ENCOUNTER 2023-08-17 09:33 | Outpatient (AMB) | payer MEDICARE, SELFPAY ==
--- NOTE | 2023-08-17 09:46 | MHC.OFFVIS ---
Intake Vital Signs 08/17/23 09:47 Height 5 ft 11 in Weight 235 lb BMI 32.8 Intake Visit Reasons: OV-RT YONIS 04/18/23 NE Intake Note: Joseph is a 72 year old male who presents today for a post operative appointment s/p Right YONIS 04/18/23. Patient reports that he is doing well, he completed physical therapy with [facility] in [place]. He was working with Becka who he reports was wonderful.She has been pleasant and infomative which has helped him progress significantly post operatively He has no present concerns with the hip. Allergies No Known Allergies Allergy (Verified 07/06/23 08:47) HPI OV-RT YONIS 04/18/23 NE HPI Details Joseph is doing much better than last visit. He has been working with physical therapy and he feels very comfortable ambulating and his hip is not bothering him. [facility] Medical History (Updated 04/25/23 @ 00:02 by Background Tita) Osteoarthritis of right hip History of skin cancer Osteoarthritis Habitual snoring COPD (chronic obstructive pulmonary disease) HTN (hypertension) Hyperlipidemia Carpal tunnel syndrome CHENG (dyspnea on exertion) Dysplastic nevus Abnormal EKG Back pain Hx of adenomatous polyp of colon Diverticulosis Memory change Spinal stenosis of lumbar region Lesion of [place] kidney Surgical History (Updated 04/25/23 @ 00:02 by Background Daemon) History of back surgery History of total right knee replacement (TKR) H/O colonoscopy S/P TKR (total knee replacement) Social History Household Members: Spouse Housing: [facility] Are you a primary home care consultant to a significant other at home: No Do you presently have visiting nurse or other home services: No Patient Tobacco Use Status: Former Tobacco user service: No Physical Exam Vital Signs: BMI result Body Mass Index 32.8 Extrem Other: Has returned to his baseline ambulation. No pain with hip range of motion. Assessment & Plan Assessment & Plan (1) Status post total replacement of right hip: Code(s): Z96.641 - Presence of right artificial hip joint Plan: Joseph is doing well. He should continue his strengthening exercises. He may follow-up in approximately 9-12 months. Dental prophylaxis discussed. Coding Level of Care Code Est Pt Level 3 (65367) Diagnoses Status post total replacement of right hip Z96.641
[2023-08-17 09:47] VITALS: BMI 32.8
== END 2023-08-17 11:20 | disposition home or self-care (01) ==
PROVIDERS: PCP Internal Medicine; Visit Provider Orthopaedic Surgery
DX: Z47.1 Aftercare following joint replacement surgery (principal); Z96.641 Presence of right artificial hip joint
CPT/HCPCS: 99212

== ENCOUNTER → 2023-08-17 09:33 | Outpatient (BNVA) | payer MEDICARE, SELFPAY | PROVIDERS: PCP Internal Medicine; Visit Provider Orthopaedic Surgery | DX: Z96.641 Presence of right artificial hip joint (principal) | CPT/HCPCS: 99212 ==